=== PATIENT | male | born 1985 | race Asian ===

== ENCOUNTER 2018-04-27 16:12 | Inpatient (IN) | payer BC ==
[~2018-04-27] VITALS: Ht 188 cm; Wt 87.2 kg
[2018-04-27 16:32] VITALS: BP 114/63; TEMP 100.6
[2018-04-27 18:01] LABS: PLATELET COUNT 238 K/uL (142-355)
[2018-04-27 18:21] LABS: POTASSIUM 4.7 mmol/L (3.6-5.2)
[2018-04-27 22:11] VITALS: BP 132/74; TEMP 102.5; Ht 188 cm; Wt 87.2 kg
[2018-04-28] VITALS (7 sets, daily range): BP systolic 108–125; BP diastolic 54–72; TEMP 98.3–99.4
[2018-04-28] MEDS ORDERED: INSU100P SC (00:18)
[2018-04-28] MEDS ORDERED: HUMULIN R100 UNIT/M SC (00:22)
[2018-04-28] MEDS ORDERED: INSU300I SC (00:24)
[2018-04-28 09:18] LABS: PLATELET COUNT 201 K/uL (142-355)
[2018-04-28 09:29] LABS: POTASSIUM 4.5 mmol/L (3.6-5.2)
[2018-04-28 18:58] LABS: POTASSIUM 4.4 mmol/L (3.6-5.2)
[2018-04-29 04:00] VITALS: BP 127/72; TEMP 98.9
[2018-04-29 05:23] LABS: PLATELET COUNT 210 K/uL (142-355)
[2018-04-29 05:40] LABS: POTASSIUM 4.2 mmol/L (3.6-5.2)
[2018-04-29 08:00] VITALS: BP 139/78; TEMP 98.3
[2018-04-29 12:00] VITALS: BP 128/80; TEMP 98.3
[2018-04-29 16:00] VITALS: BP 144/73; TEMP 98.5
[2018-04-29 20:00] VITALS: BP 146/69; TEMP 98.7
[2018-04-30] VITALS: BP 121/79; TEMP 98.6
[2018-04-30 04:00] VITALS: BP 139/81; TEMP 98.7
[2018-04-30 05:51] LABS: PLATELET COUNT 278 K/uL (142-355)
[2018-04-30 06:05] LABS: POTASSIUM 3.8 mmol/L (3.6-5.2)
[2018-04-30 08:06] VITALS: BP 154/84; TEMP 98.4
[2018-04-30] MEDS ORDERED: LEVOFLOXACIN750 MG PO (11:29)
[2018-04-30] MEDS ORDERED: TESSALON PER100 MG PO (11:30)
[2018-04-30 12:00] VITALS: BP 137/74; BP 154/84; TEMP 98.2; TEMP 98.4
== END 2018-04-30 12:50 | disposition home or self-care (01) | DRG 178 ==
LOC: ED 16:12 → MED/SURG 19:30
PROVIDERS: Emergency Medicine; ADMIT Family Medicine
DX: J15.211 Pneumonia due to Methicillin susceptible Staphylococcus aureus (principal); N17.8 Other acute kidney failure; E10.65 Type 1 diabetes mellitus with hyperglycemia; E86.0 Dehydration; E10.22 Type 1 diabetes mellitus with diabetic chronic kidney disease; N18.3 Chronic kidney disease, stage 3 (moderate); Z79.4 Long term (current) use of insulin; F17.210 Nicotine dependence, cigarettes, uncomplicated
CPT/HCPCS: 36415; 80048; 80053; 80202; 81000; 83036; 85027; 85379; 87040; 87070; 87077; 87185; 87186; 87205; 87502; 87651; 87899; 93005; 94640; 94664; 94760; 96360; 96365; 99284; J0456; J0696; J1650; J1815; J3370; Q9963

== ENCOUNTER → 2019-01-08 06:34 | Outpatient (CLI) | payer BC ==
[~2019-01-08 06:34] MED LIST: HUMULIN R100 UNIT/M SC; INSU100P SC; INSU300I SC; LEVOFLOXACIN750 MG PO; TESSALON PER100 MG PO
== END | disposition home or self-care (01) ==
LOC: AMB 06:34
DX: R41.82 Altered mental status, unspecified (principal); E11.649 Type 2 diabetes mellitus with hypoglycemia without coma

== ENCOUNTER 2020-08-10 20:36 | Emergency (ER) | payer BC ==
[~2020-08-10] VITALS: Ht 188 cm; Wt 86.6 kg
[2020-08-10 21:27] VITALS: BP 138/67; TEMP 97.9
== END 2020-08-10 21:29 | disposition home or self-care (01) ==
LOC: ED 20:36
DX: N34.2 Other urethritis (principal); A64 Unspecified sexually transmitted disease; R30.0 Dysuria
CPT/HCPCS: 87490; 87590; 96372; 99283; J0696

== ENCOUNTER 2021-05-24 01:46 | Emergency (ER) | payer BC ==
[~2021-05-24] VITALS: Ht 188 cm; Wt 91.2 kg
[2021-05-24 03:10] VITALS: BP 134/77; TEMP 98
== END 2021-05-24 03:10 | disposition home or self-care (01) ==
LOC: ED 01:46
DX: S60.221A Contusion of right hand, initial encounter (principal); W22.09XA Striking against other stationary object, initial encounter; Y92.89 Other specified places as the place of occurrence of the external cause
CPT/HCPCS: 96372; 99283; J1885

== ENCOUNTER 2022-11-07 20:03 | Emergency (ER) | payer OTHER ==
[~2022-11-07] VITALS: Ht 188 cm; Wt 83.9 kg
[2022-11-07 21:15] VITALS: BP 126/81; TEMP 97.4
== END 2022-11-07 21:15 | disposition home or self-care (01) ==
LOC: ED 20:03
DX: K04.7 Periapical abscess without sinus (principal); I10 Essential (primary) hypertension; E11.9 Type 2 diabetes mellitus without complications
CPT/HCPCS: 96372; 99283; J1885